=== PATIENT | male | born 1960 | race Caucasian/White ===

== ENCOUNTER → 2017-06-12 | Outpatient (CLI) | payer BC ==
[~2017-06-12] MED LIST: ATORVASTATIN CA20 M1 PO; CLOPIDOGREL75 M1 PO; LEVOTHYROXIN0.125 M1 PO; LIPITOR80 MG PO; LISINOPRIL/HCTZ1 TA3 FT
== END ==
LOC: UTC.OUT 10:41
DX: Z02.4 Encounter for examination for driving license (principal)